=== PATIENT | male | born 1970 | race Caucasian/White ===

== ENCOUNTER 2016-12-02 16:52 | Emergency (ER) | payer MEDICAID ==
[~2016-12-02] VITALS: Ht 182.9 cm; Wt 58.2 kg
[~2016-12-02 16:52] MED LIST: ALBU0.63 NEB; CIPR500T87 PO; CLON0.1T PO; CYAN10005 PO; FOLI-17 PO; LEVE500T53 PO; MULT-484 PO; NICO1PAT16 TD; NO MEDS; PROP10TA PO; THIA100T6 PO
[2016-12-02 16:59] VITALS: BP 148/77
== END 2016-12-02 17:43 | disposition home or self-care (01) ==
LOC: ED 17:36
DX: J44.9 Chronic obstructive pulmonary disease, unspecified (principal); F17.210 Nicotine dependence, cigarettes, uncomplicated
CPT/HCPCS: 99283; 99406

== ENCOUNTER 2018-02-07 09:18 | Emergency (ER) | payer BC, MEDICAID ==
[~2018-02-07] VITALS: Ht 182.9 cm; Wt 71.9 kg
[~2018-02-07 09:18] MED LIST changes: +NICO-487 TD; -NICO1PAT16 TD; -THIA100T6 PO; +THIA100T67 PO
[2018-02-07] MEDS ORDERED: KETOROLAC 30 MG/1 ML ONE (09:48)
[2018-02-07] MEDS ORDERED: KETOROLAC 30 MG/1 ML IM ONE (10:00)
[2018-02-07 10:20] LABS: BASOPHILS # (AUTO) 0.04 x10^3/uL (0-0.1); BASOPHILS % (AUTO) 0 % (0-1); EOSINOPHILS # (AUTO) 0.19 x10^3/uL (0-0.4); EOSINOPHILS % (AUTO) 2 % (1-7); LYMPHOCYTES # (AUTO) 2.77 x10^3/uL (1-3.4); LYMPHOCYTES % (AUTO) 25 % (22-44); MD NO; MEAN CORPUSCULAR HGB CONC 34.1 g/dL (33.2-36.2); MEAN PLATELET VOLUME 8.8 fL (7.4-10.4); MONOCYTES # (AUTO) 0.37 x10^3/uL (0.2-0.8); MONOCYTES % (AUTO) 3 % (2-9); NEUTROPHILS # (AUTO) 7.75 x10^3/uL (1.8-6.8); NEUTROPHILS % (AUTO) 70 % (42-75); PLATELET COUNT 168 x10^3/uL (130-400); RED CELL DISTRIBUTION WIDTH 14.8 % (9.4-14.8)
[2018-02-07 10:32] LABS: ALBUMIN 3.4 g/dL (3.4-5.0); ANION GAP 4 mmol/L (5-15); CALCIUM 8.7 mg/dL (8.5-10.1); CHLORIDE 109 mmol/L (98-107); CREATININE 0.95 mg/dL (0.7-1.3)
[2018-02-07 11:30] VITALS: BP 114/74
== END 2018-02-07 12:05 | disposition home or self-care (01) ==
LOC: ED 11:55
DX: M79.651 Pain in right thigh (principal); M79.671 Pain in right foot; J44.9 Chronic obstructive pulmonary disease, unspecified
CPT/HCPCS: 36415; 73630; 80048; 82040; 85025; 93971; 96372; 99285; J1885